=== PATIENT | female | born 1950 | race Caucasian/White ===

== ENCOUNTER → 2017-11-06 16:59 | Outpatient (CLI) | payer MEDICARE, BC, SELFPAY | PROVIDERS: Visit Provider Physician Assistant | DX: R30.0 Dysuria (principal) | CPT/HCPCS: 87086 ==

== ENCOUNTER → 2017-12-04 11:41 | Outpatient (CLI) | payer MEDICARE, BC, SELFPAY ==
[2017-12-04 12:17] LABS: Add Manual Diff / Slide Review NO; Basophils Percent Auto 1.7 % (0-2); Hematocrit 41.2 % (36-46); Hemoglobin 14.1 g/dL (12.0-16.0); Lymphocytes Percent Auto 22.4 % (25-40); Mean Corpuscular HGB Conc 34.3 % (30-36); Mean Corpuscular Hemoglobin 30.8 PG (26-34); Mean Corpuscular Volume 89.6 fL (80-100); Monocytes Percent Auto 10.9 % (3-14); Neutrophils Absolute Auto 3800 /uL (3000-5900); Platelet Count 483 X10^3/uL (150-400); Red Cell Distribution Width 15.1 % (11.6-14.8); White Blood Cell Count 5.9 X10^3/uL (4.5-11.0)
[2017-12-04 12:29] LABS: Erythrocyte Sedimentation Rate 16 MM/HR (0-20); INR 1.3 (0.9-1.3); Prothrombin Time 14.2 SECONDS (10.1-12.7)
[2017-12-04 12:34] LABS: Alanine Aminotransferase 121 IU/L (9-52); Albumin 4.4 g/dL (3.5-5.0); Albumin Globulin Ratio 1.4 (1.0-2.8); Alkaline Phosphatase 325 U/L (38-126); Aspartate Aminotransferase 97 IU/L (14-36); Bilirubin Direct 10.5 mg/dL (0.0-0.4); Bilirubin Total 12.3 mg/dL (0.2-1.3); Blood Urea Nitrogen 9 mg/dL (7-17); Calcium 9.6 mg/dL (8.4-10.2); Carbon Dioxide 28 mmol/L (22-32); Chloride 96 mmol/L (98-107); Estimated Glomerular Filt Rate > 60.0 mL/min (>60); Globulin 3.1 g/dL (1.7-4.1); Glucose 132 mg/dL (80-110); HEMOLYSIS < 15 (0-50); Potassium 3.2 mmol/L (3.4-5.1); Sodium 139 mmol/L (137-145); Total Protein 7.5 g/dL (6.3-8.2)
[2017-12-08 10:36] LABS: Hepatitis A Antibody IgM NONREACTIVE; Hepatitis Acute Panel Interp 0.01; Hepatitis B Core Antibody IgM NONREACTIVE; Hepatitis B Surface Antigen NONREACTIVE; Hepatitis C Antibody NONREACTIVE
== END ==
PROVIDERS: Visit Provider Internal Medicine
DX: R94.5 Abnormal results of liver function studies (principal); R17 Unspecified jaundice; R30.0 Dysuria; L50.9 Urticaria, unspecified
CPT/HCPCS: 36415; 80053; 80074; 82248; 85025; 85610; 85651

== ENCOUNTER → 2017-12-13 13:27 | Outpatient (CLI) | payer MEDICARE, BC, SELFPAY ==
[2017-12-13 13:50] LABS: INR 1.2 (0.9-1.3); Prothrombin Time 13.2 SECONDS (10.1-12.7)
[2017-12-13 13:55] LABS: Alanine Aminotransferase 80 IU/L (9-52); Albumin 4.3 g/dL (3.5-5.0); Albumin Globulin Ratio 1.4 (1.0-2.8); Alkaline Phosphatase 279 U/L (38-126); Aspartate Aminotransferase 68 IU/L (14-36); Bilirubin Conjugated 2.4 md/dL (0.0-0.3); Bilirubin Total 9.1 mg/dL (0.2-1.3); Bilirubin Unconjugated 1.9 mg/dL (0.0-1.1); Globulin 3.1 g/dL (1.7-4.1); HEMOLYSIS < 15 (0-50); Total Protein 7.4 g/dL (6.3-8.2)
== END ==
PROVIDERS: Visit Provider Internal Medicine
DX: Z85.038 Personal history of other malignant neoplasm of large intestine (principal); C22.1 Intrahepatic bile duct carcinoma
CPT/HCPCS: 36415; 80076; 85610

== ENCOUNTER 2017-12-13 16:49 | Inpatient (IN) | payer MEDICARE, BC, SELFPAY ==
[2017-12-13] VITALS (9 sets, daily range): BP systolic 128–167; BP diastolic 63–90; PULSE 65–87; RESP 13–18; TEMP 36.4–36.9; O2SAT 97–100; BMI 20.5
--- NOTE | 2017-12-13 16:56 | ED.ABDPAIN ---
HPI - Abdominal Pain <Brant Rocha DO - Last Filed: 12/30/17 07:59> General Chief Complaint: Abdominal Pain Stated Complaint: BACK PAIN, THINKS PANCREASE Time Seen by Provider: 12/13/17 16:56 Source: patient and family Mode of arrival: ambulatory Limitations: no limitations History of Present Illness HPI narrative: Patient presents to the emergency department with chief complaint of general feeling of malaise with decreased appetite and central back pain that radiates around both flanks. She has a complicated medical history and just a few days ago was at the [facility] and received stents in her biliary duct and pancreatic ducts for the early therapeutic treatment of gallbladder cancer. She does not have a working diagnosis and has received no oncologic treatment thus far. She was discharged from the [facility] and felt fine and then last evening developed symptoms soon after taking Levaquin. The GI fellow at the [facility] states she was put on antibiotics because some of her biliary tracts remained slightly ?clogged? and she needs antibiotic prophylaxis. Patient denies any fever or chills and has had no nausea or vomiting since the procedure. She is not dizzy nor weak or lightheaded. Patient presented to her primary care office and was sent here at his request. She is still jaundice but states that is definitely improved over prior MD complaint: flank pain Onset (ago): hour(s) Pain Consistency: constant Severity: moderate Quality: aching and fullness Radiation: back Migration to: no migration Relieving factors: nothing Exacerbating factors: nothing Related Data Home Medications Medication Instructions Recorded Confirmed lisinopril 10 1 tab PO DAILY 11/06/17 12/14/17 mg-hydrochlorothiazide 12.5 mg tablet simvastatin 40 mg tablet 40 mg PO QAM 11/06/17 12/14/17 Previous Rx's Medication Instructions Recorded oxycodone 10 mg PO Q3HR PRN #50 tab 12/15/17 ciprofloxacin HCl [Cipro] 500 mg PO BID #20 tab 12/23/17 metronidazole [Flagyl] 500 mg PO QID #40 tab 12/23/17 Allergies Allergy/AdvReac Type Severity Reaction Status Date / Time No Known Drug Allergies Allergy Verified 12/13/17 17:06 Review of Systems <DO Love Nascimento Last Filed: 12/30/17 07:59> Review of Systems All systems reviewed & are unremarkable except as noted in HPI and below Constitutional Denies chills, Denies fever(s), Denies lethargy and Denies weakness Eyes Denies change in vision, Denies eye discharge, Denies irritation and Denies loss of vision ENT Ears, Nose, Mouth, and Throat: Denies change in voice, Denies neck pain and Denies sore throat Cardiovascular Denies chest pain, Denies irregular heart rhythm, Denies lightheadedness, Denies palpitations, Denies dyspnea, Denies dyspnea on exertion and Denies orthopnea Respiratory Denies cough, Denies dyspnea, Denies dyspnea on exertion and Denies wheezing Gastrointestinal Gastrointestinal: Denies abdominal pain, Denies change in bowel habits, Denies diarrhea, Denies nausea and Denies vomiting Genitourinary Denies hematuria, Denies flank pain, Denies urinary incontinence and Denies urinary urgency Musculoskeletal Denies neck pain Integumentary/Breasts Denies pruritus, Denies erythema, Denies rash and Denies wounds Neurologic Denies confusion, Denies loss of vision and Denies weakness Psychiatric Denies anxiety, Denies confusion, Denies depression, Denies homicidal ideation and Denies suicidal ideation Endocrine Denies palpitations Hematologic/Lymphatic Denies easy bruising Allergic/Immunologic Denies wheezing Exam <Brant Rocha, DO - Last Filed: 12/30/17 07:59> Narrative Exam Narrative: 67-year-old chronically ill female appears generally unwell, jaundiced Initial Vital Signs Initial Vital Signs: Vital Signs Temperature 97.6 F 12/13/17 17:01 Pulse Rate 76 12/13/17 17:01 Respiratory Rate 14 12/13/17 17:01 Blood Pressure 157/90 H 12/13/17 17:01 Pulse Oximetry 100 12/13/17 17:01 Const General: cooperative, in distress and ill appearing Nutritional Appearance: well nourished Orientation: alert, awake, oriented x3 and not confused [facility] Head: normocephalic and atraumatic Ears: external ears normal and TM's normal bilaterally Nose: external nose normal and No nasal discharge Face and sinus: sinuses nontender, face symmetric, no sinus tenderness and No dry mucous membranes Mouth: oral mucosae normal and moist mucous membranes Teeth and gingiva: dentition normal Throat: tonsils normal and uvula midline Eyes General: appearance normal, both eyes and all related structures Eyelids: eyelids normal Conjunctivae: conjunctivae normal Sclera: sclerae normal Pupils: PERRL EOM: EOM intact bilaterally Resp Effort & Inspection: normal respiratory effort, able to speak in complete sentences, no respiratory distress and no use of accessory muscles Auscultation: clear to auscultation bilaterally, no rales, no rhonchi and no wheezes GI Inspection: non-distended Palpation: soft, no hepatosplenomegaly, No guarding, No pulsatile mass and No tender Auscultation: normal bowel sounds Back/Spine/Pelvis Back: No CVA tenderness Cervical Spine: cervical ROM normal and No pain with cervical ROM Thoracic/Lumbar Spine: thoracic and lumbar spine normal to inspection Skin General: jaundice Neuro General: alert, oriented x3, gait normal and no focal motor deficits Speech: speech normal Extrem General: full ROM, no clubbing, cyanosis or edema, no pedal edema and no calf tenderness <Lynn Flores DO - Last Filed: 12/14/17 01:37> Initial Vital Signs Initial Vital Signs: Vital Signs Temperature 97.6 F 12/13/17 17:01 Pulse Rate 76 12/13/17 17:01 Respiratory Rate 14 12/13/17 17:01 Blood Pressure 157/90 H 12/13/17 17:01 Pulse Oximetry 100 12/13/17 17:01 Course <Brant Rocha DO - Last Filed: 12/30/17 07:59> Orders Ordered: Discontinued Medications Hydromorphone HCl (Dilaudid) 0.5 mg IV NOW ONE Stop: 12/13/17 17:48 Last Admin: 12/13/17 18:11 Dose: 0.5 mg Hydromorphone HCl (Dilaudid) 0.5 mg IV NOW ONE Stop: 12/13/17 18:13 Last Admin: 12/13/17 18:12 Dose: 0.5 mg Hydromorphone HCl (Dilaudid) 0.5 mg IV NOW ONE Stop: 12/13/17 20:18 Last Admin: 12/13/17 20:21 Dose: 0.5 mg Hydromorphone HCl (Dilaudid) 0.5 mg IV NOW ONE Stop: 12/13/17 20:24 Last Admin: 12/13/17 20:30 Dose: Not Given Hydromorphone HCl (Dilaudid) 0.5 mg IV NOW ONE Stop: 12/13/17 21:39 Last Admin: 12/13/17 21:40 Dose: 0.5 mg Hydromorphone HCl (Dilaudid) 0.5 mg IV Q4HR PRN PRN Reason: Pain, Mild (1-3) Hydromorphone HCl (Dilaudid) 0.5 mg IV Q4HR PRN PRN Reason: Pain, Mild (1-3) Last Admin: 12/14/17 09:04 Dose: 0.5 mg Admin: 12/14/17 04:30 Dose: 0.5 mg Admin: 12/14/17 00:31 Dose: 0.5 mg Sodium Chloride (Normal Saline 0.9%) 1,000 mls @ 100 mls/hr IV CONT ALFREDO Last Admin: 12/14/17 07:05 Dose: 150 mls/hr Infusion: 12/13/17 20:26 Dose: 0 mls/hr Infusion: 12/13/17 19:21 Dose: 1,000 mls/hr Admin: 12/13/17 18:11 Dose: 150 mls/hr Ceftriaxone Sodium/Dextrose (Rocephin) 1 gm in 50 mls @ 100 mls/hr IV NOW ONE Stop: 12/13/17 18:16 Last Infusion: 12/13/17 19:04 Dose: 0 mls/hr Admin: 12/13/17 18:11 Dose: 100 mls/hr Sodium Chloride (Normal Saline 0.9%) 1,000 mls @ 1,000 mls/hr IV BOLUS ONE Stop: 12/13/17 20:00 Last Infusion: 12/13/17 22:01 Dose: 0 mls/hr Admin: 12/13/17 20:26 Dose: 1,000 mls/hr Sodium Chloride (Normal Saline 0.9%) 1,000 mls @ 250 mls/hr IV BOLUS ONE Stop: 12/14/17 01:46 Last Infusion: 12/13/17 23:33 Dose: 250 mls/hr Admin: 12/13/17 22:01 Dose: 250 mls/hr Sodium Chloride (Normal Saline 0.9%) 1,000 mls @ 1,000 mls/hr IV BOLUS ONE Stop: 12/13/17 22:46 Last Admin: 12/14/17 00:28 Dose: Not Given Potassium Chloride/Dextrose/Sod Cl (Dextrose 5%-0.45%Ns W/Kcl 20meq) 1,000 mls @ 100 mls/hr IV CONT ALFREDO Last Admin: 12/15/17 07:35 Dose: 100 mls/hr Infusion: 12/15/17 07:22 Dose: 0 mls/hr Admin: 12/14/17 11:30 Dose: 100 mls/hr Ondansetron HCl (Zofran) 4 mg IV Q4HR PRN PRN Reason: Nausea And Vomiting Oxycodone HCl (Percolone) 10 mg PO Q3HR PRN PRN Reason: Pain, Severe (7-10) Last Admin: 12/15/17 10:15 Dose: 10 mg Admin: 12/15/17 05:40 Dose: 10 mg Admin: 12/15/17 00:02 Dose: 10 mg Admin: 12/14/17 18:14 Dose: 10 mg Admin: 12/14/17 12:51 Dose: 10 mg Reevaluation(s) Reevaluation #1: patient in worsening pain, Dilaudid given, Rocephin given. Fluids ordered. Consultations Consultation #1: Upon receipt of labs I have called Dr. Simpson the GI fellow on-call, he recommends transfer to the [facility] given pancreatitis in the aftermath of her recent procedure and intolerance of orals. Call placed to the [facility] transfer center and transfer initiated. Time: 19:06 Vital Signs - 8 hr 12/13/17 17:35 12/13/17 18:07 12/13/17 18:50 Temperature Pulse Rate 71 66 65 Respiratory Rate 18 18 16 Blood Pressure Blood Pressure [Left Arm] 160/74 H 160/74 H 128/63 H Pulse Oximetry 100 100 97 12/13/17 19:30 12/13/17 20:30 12/13/17 21:30 Temperature Pulse Rate 78 76 87 Respiratory Rate 13 Blood Pressure Blood Pressure [Left Arm] 151/80 H 167/75 H 154/65 H Pulse Oximetry 100 100 99 12/13/17 22:32 12/13/17 23:57 Temperature 98.5 F Pulse Rate 72 79 Respiratory Rate 16 Blood Pressure 153/81 H Blood Pressure [Left Arm] 142/67 H Pulse Oximetry 100 97 <Lynn Flores DO - Last Filed: 12/14/17 01:37> Orders Ordered: Discontinued Medications Hydromorphone HCl (Dilaudid) 0.5 mg IV NOW ONE Stop: 12/13/17 17:48 Last Admin: 12/13/17 18:11 Dose: 0.5 mg Hydromorphone HCl (Dilaudid) 0.5 mg IV NOW ONE Stop: 12/13/17 18:13 Last Admin: 12/13/17 18:12 Dose: 0.5 mg Hydromorphone HCl (Dilaudid) 0.5 mg IV NOW ONE Stop: 12/13/17 20:18 Last Admin: 12/13/17 20:21 Dose: 0.5 mg Hydromorphone HCl (Dilaudid) 0.5 mg IV NOW ONE Stop: 12/13/17 20:24 Last Admin: 12/13/17 20:30 Dose: Not Given Hydromorphone HCl (Dilaudid) 0.5 mg IV NOW ONE Stop: 12/13/17 21:39 Last Admin: 12/13/17 21:40 Dose: 0.5 mg Hydromorphone HCl (Dilaudid) 0.5 mg IV Q4HR PRN PRN Reason: Pain, Mild (1-3) Hydromorphone HCl (Dilaudid) 0.5 mg IV Q4HR PRN PRN Reason: Pain, Mild (1-3) Last Admin: 12/14/17 09:04 Dose: 0.5 mg Admin: 12/14/17 04:30 Dose: 0.5 mg Admin: 12/14/17 00:31 Dose: 0.5 mg Sodium Chloride (Normal Saline 0.9%) 1,000 mls @ 100 mls/hr IV CONT ALFREDO Last Admin: 12/14/17 07:05 Dose: 150 mls/hr Infusion: 12/13/17 20:26 Dose: 0 mls/hr Infusion: 12/13/17 19:21 Dose: 1,000 mls/hr Admin: 12/13/17 18:11 Dose: 150 mls/hr Ceftriaxone Sodium/Dextrose (Rocephin) 1 gm in 50 mls @ 100 mls/hr IV NOW ONE Stop: 12/13/17 18:16 Last Infusion: 12/13/17 19:04 Dose: 0 mls/hr Admin: 12/13/17 18:11 Dose: 100 mls/hr Sodium Chloride (Normal Saline 0.9%) 1,000 mls @ 1,000 mls/hr IV BOLUS ONE Stop: 12/13/17 20:00 Last Infusion: 12/13/17 22:01 Dose: 0 mls/hr Admin: 12/13/17 20:26 Dose: 1,000 mls/hr Sodium Chloride (Normal Saline 0.9%) 1,000 mls @ 250 mls/hr IV BOLUS ONE Stop: 12/14/17 01:46 Last Infusion: 12/13/17 23:33 Dose: 250 mls/hr Admin: 12/13/17 22:01 Dose: 250 mls/hr Sodium Chloride (Normal Saline 0.9%) 1,000 mls @ 1,000 mls/hr IV BOLUS ONE Stop: 12/13/17 22:46 Last Admin: 12/14/17 00:28 Dose: Not Given Potassium Chloride/Dextrose/Sod Cl (Dextrose 5%-0.45%Ns W/Kcl 20meq) 1,000 mls @ 100 mls/hr IV CONT ALFREDO Last Admin: 12/15/17 07:35 Dose: 100 mls/hr Infusion: 12/15/17 07:22 Dose: 0 mls/hr Admin: 12/14/17 11:30 Dose: 100 mls/hr Ondansetron HCl (Zofran) 4 mg IV Q4HR PRN PRN Reason: Nausea And Vomiting Oxycodone HCl (Percolone) 10 mg PO Q3HR PRN PRN Reason: Pain, Severe (7-10) Last Admin: 12/15/17 10:15 Dose: 10 mg Admin: 12/15/17 05:40 Dose: 10 mg Admin: 12/15/17 00:02 Dose: 10 mg Admin: 12/14/17 18:14 Dose: 10 mg Admin: 12/14/17 12:51 Dose: 10 mg Consultations Consultation #1: Dr. Edward Chowdhury accepts patient at the [facility]. Unfortunately no bed will be available tonight. But she is on the list I will likely be transferred tomorrow. Recommends more IV fluids at this time and close monitoring. Time: 21:48 Vital Signs - 8 hr 12/13/17 17:35 12/13/17 18:07 12/13/17 18:50 Temperature Pulse Rate 71 66 65 Respiratory Rate 18 18 16 Blood Pressure Blood Pressure [Left Arm] 160/74 H 160/74 H 128/63 H Pulse Oximetry 100 100 97 12/13/17 19:30 12/13/17 20:30 12/13/17 21:30 Temperature Pulse Rate 78 76 87 Respiratory Rate 13 Blood Pressure Blood Pressure [Left Arm] 151/80 H 167/75 H 154/65 H Pulse Oximetry 100 100 99 12/13/17 22:32 12/13/17 23:57 Temperature 98.5 F Pulse Rate 72 79 Respiratory Rate 16 Blood Pressure 153/81 H Blood Pressure [Left Arm] 142/67 H Pulse Oximetry 100 97 MDM - Abdominal Pain <Brant Rocha DO - Last Filed: 12/30/17 07:59> Lab Data Result diagrams: 12/13/17 17:10 12/14/17 06:07 Lab Results 12/13/17 12/13/17 12/13/17 Range/Units 17:10 17:10 17:10 WBC 11.1 H (4.5-11.0) X10^3/uL RBC 4.37 (4.0-5.2) X10^6/uL Hgb 13.4 (12.0-16.0) g/dL Hct 38.8 (36-46) % MCV 88.9 (80-100) fL MCH 30.6 (26-34) PG MCHC 34.4 (30-36) % RDW 15.8 H (11.6-14.8) % Plt Count 473 H (150-400) X10^3/uL Neut % (Auto) 73.6 (50-75) % Lymph % (Auto) 16.4 L (25-40) % [place] % (Auto) 7.9 (3-14) % Eos % (Auto) 0.7 L (2-4) % Baso % (Auto) 1.4 (0-2) % Neut # (Auto) 8200 H (9216-1732) /uL Sodium 137 (137-145) mmol/L Potassium 3.5 (3.4-5.1) mmol/L Chloride 99 (98-107) mmol/L Carbon Dioxide 25 (22-32) mmol/L BUN 13 (7-17) mg/dL Creatinine 0.50 L (0.52-1.04) mg/dL Estimated GFR > 60.0 (>60) mL/min BUN/Creatinine Ratio 26.0 H (6-22) Glucose 117 H (80-110) mg/dL Lactate 1.2 (0.7-2.1) mmol/L Calcium 9.3 (8.4-10.2) mg/dL Total Bilirubin 8.5 H (0.2-1.3) mg/dL AST 75 H (14-36) IU/L ALT 74 H (9-52) IU/L Alkaline Phosphatase 262 H (38-126) U/L Lactate Dehydrogenase (313-618) U/L Total Protein 7.2 (6.3-8.2) g/dL Albumin 4.0 (3.5-5.0) g/dL Globulin 3.2 (1.7-4.1) g/dL Albumin/Globulin Ratio 1.3 (1.0-2.8) Lipase 78104 H (23-300) U/L 12/13/17/ Range/Units 17:10 06:07 WBC (4.5-11.0) X10^3/uL RBC (4.0-5.2) X10^6/uL Hgb (12.0-16.0) g/dL Hct (36-46) % MCV (80-100) fL MCH (26-34) PG MCHC (30-36) % RDW (11.6-14.8) % Plt Count (150-400) X10^3/uL Neut % (Auto) (50-75) % Lymph % (Auto) (25-40) % [place] % (Auto) (3-14) % Eos % (Auto) (2-4) % Baso % (Auto) (0-2) % Neut # (Auto) (8778-3596) /uL Sodium 138 (137-145) mmol/L Potassium 3.2 L (3.4-5.1) mmol/L Chloride 106 (98-107) mmol/L Carbon Dioxide 23 (22-32) mmol/L BUN 7 (7-17) mg/dL Creatinine 0.40 L (0.52-1.04) mg/dL Estimated GFR > 60.0 (>60) mL/min BUN/Creatinine Ratio 17.5 (6-22) Glucose 93 (80-110) mg/dL Lactate (0.7-2.1) mmol/L Calcium 7.9 L (8.4-10.2) mg/dL Total Bilirubin 6.5 H (0.2-1.3) mg/dL AST 62 H (14-36) IU/L ALT 60 H (9-52) IU/L Alkaline Phosphatase 195 H (38-126) U/L Lactate Dehydrogenase 471 (313-618) U/L Total Protein 5.8 L (6.3-8.2) g/dL Albumin 3.1 L (3.5-5.0) g/dL Globulin 2.7 (1.7-4.1) g/dL Albumin/Globulin Ratio 1.1 (1.0-2.8) Lipase 77873 H D (23-300) U/L Point of care testing: Urine Dip Bedside Urine Glucose Negative Bedside Urine Bilirubin - Negative Bedside Urine Ketone +/- 5 Urine Specific [place] 1.010 Bedside Urine Occult Blood - Negative Bedside Urine pH 8.0 Bedside Urine Protein - Negative Bedside Urine Urobilinogen - Negative Bedside Urine Nitrite - Negative Bedside Urine Leukocytes - Negative Esterase <Lynn Flores, DO - Last Filed: 12/14/17 01:37> Medical Records Attestation: I reviewed the patient's medical records. Lab Data Attestation: I reviewed the patient's lab results. Lab Results 12/13/17 12/13/17 12/13/17 Range/Units 17:10 17:10 17:10 WBC 11.1 H (4.5-11.0) X10^3/uL RBC 4.37 (4.0-5.2) X10^6/uL Hgb 13.4 (12.0-16.0) g/dL Hct 38.8 (36-46) % MCV 88.9 (80-100) fL MCH 30.6 (26-34) PG MCHC 34.4 (30-36) % RDW 15.8 H (11.6-14.8) % Plt Count 473 H (150-400) X10^3/uL Neut % (Auto) 73.6 (50-75) % Lymph % (Auto) 16.4 L (25-40) % [place] % (Auto) 7.9 (3-14) % Eos % (Auto) 0.7 L (2-4) % Baso % (Auto) 1.4 (0-2) % Neut # (Auto) 8200 H (3742-8300) /uL Sodium 137 (137-145) mmol/L Potassium 3.5 (3.4-5.1) mmol/L Chloride 99 (98-107) mmol/L Carbon Dioxide 25 (22-32) mmol/L BUN 13 (7-17) mg/dL Creatinine 0.50 L (0.52-1.04) mg/dL Estimated GFR > 60.0 (>60) mL/min BUN/Creatinine Ratio 26.0 H (6-22) Glucose 117 H (80-110) mg/dL Lactate 1.2 (0.7-2.1) mmol/L Calcium 9.3 (8.4-10.2) mg/dL Total Bilirubin 8.5 H (0.2-1.3) mg/dL AST 75 H (14-36) IU/L ALT 74 H (9-52) IU/L Alkaline Phosphatase 262 H (38-126) U/L Lactate Dehydrogenase (313-618) U/L Total Protein 7.2 (6.3-8.2) g/dL Albumin 4.0 (3.5-5.0) g/dL Globulin 3.2 (1.7-4.1) g/dL Albumin/Globulin Ratio 1.3 (1.0-2.8) Lipase 12845 H (23-300) U/L 12/13/17 12/14/17 Range/Units 17:10 06:07 WBC (4.5-11.0) X10^3/uL RBC (4.0-5.2) X10^6/uL Hgb (12.0-16.0) g/dL Hct (36-46) % MCV (80-100) fL MCH (26-34) PG MCHC (30-36) % RDW (11.6-14.8) % Plt Count (150-400) X10^3/uL Neut % (Auto) (50-75) % Lymph % (Auto) (25-40) % [place] % (Auto) (3-14) % Eos % (Auto) (2-4) % Baso % (Auto) (0-2) % Neut # (Auto) (5977-4170) /uL Sodium 138 (137-145) mmol/L Potassium 3.2 L (3.4-5.1) mmol/L Chloride 106 (98-107) mmol/L Carbon Dioxide 23 (22-32) mmol/L BUN 7 (7-17) mg/dL Creatinine 0.40 L (0.52-1.04) mg/dL Estimated GFR > 60.0 (>60) mL/min BUN/Creatinine Ratio 17.5 (6-22) Glucose 93 (80-110) mg/dL Lactate (0.7-2.1) mmol/L Calcium 7.9 L (8.4-10.2) mg/dL Total Bilirubin 6.5 H (0.2-1.3) mg/dL AST 62 H (14-36) IU/L ALT 60 H (9-52) IU/L Alkaline Phosphatase 195 H (38-126) U/L Lactate Dehydrogenase 471 (313-618) U/L Total Protein 5.8 L (6.3-8.2) g/dL Albumin 3.1 L (3.5-5.0) g/dL Globulin 2.7 (1.7-4.1) g/dL Albumin/Globulin Ratio 1.1 (1.0-2.8) Lipase 73009 H D (23-300) U/L Point of care testing: Urine Dip Bedside Urine Glucose Negative Bedside Urine Bilirubin - Negative Bedside Urine Ketone +/- 5 Urine Specific [place] 1.010 Bedside Urine Occult Blood - Negative Bedside Urine pH 8.0 Bedside Urine Protein - Negative Bedside Urine Urobilinogen - Negative Bedside Urine Nitrite - Negative Bedside Urine Leukocytes - Negative Esterase Imaging Data US - abdomen: Radiologist's impression: PROCEDURE: US ABDOMEN COMPLETE INDICATIONS: PANCREATITIS TECHNIQUE: Real-time scanning was performed of the abdominal and retroperitoneal organs, with image documentation. COMPARISON: None. FINDINGS: Liver: Known hepatic mass seen on an outside MRI by report is not identified. Gallbladder: Gallbladder is enlarged measuring 6.4 CM with normal wall thickness and no pericholecystic fluid. There is a negative sonographic Robles's signs. There is cholelithiasis. Biliary ducts: There is intrahepatic ductal dilatation and extrahepatic ductal dilatation which measures up to 10 mm. There is a biliary duct stent with a possible 7 mm calculus adjacent to the stent. Pancreas: Visualized portions of the pancreas are sonographically normal. The pancreatic duct measures 3 mm in diameter. Spleen: Spleen is normal in size and homogeneous in echotexture. Kidneys: Kidneys are normal in size and echotexture. Right kidney measures 11.4 cm long; left kidney measures 11.5 cm long. No hydronephrosis or nephrolithiasis. No solid masses. Aorta: Visualized aorta is normal in caliber at less than 3 cm. Iliacs: Proximal common iliac arteries are normal in caliber at less than 2.5 cm. IVC: Intrahepatic inferior vena cava is patent. Miscellaneous: No free abdominal fluid. IMPRESSION: 1. Reported hepatic mass is not identified. 2. Intra-and extrahepatic biliary ductal dilatation with a stent in the common bile duct. There is a possible 7 mm calculus adjacent to stent. 3. Enlarged gallbladder with cholelithiasis. Findings do not support acute cholecystitis. Dictated by: Toni Rea M.D. on 12/13/2017 at 20:11 CT scan - abdomen: Radiologist's impression: PROCEDURE: CT ABDOMEN PELVIS W CON INDICATIONS: Pancreatitis ERCP 12/11 stent in CBD, ventral pancreatic duct TECHNIQUE: After the administration of intravenous contrast, 5 mm thick sections acquired from the diaphragm to the symphysis. 5 mm coronal and sagittal reformats were acquired. For radiation dose reduction, the following was used: automated exposure control, adjustment of mA and/or kV according to patient size. COMPARISON: None. FINDINGS: Image quality: Excellent. ABDOMEN: Lung bases: Lung bases are clear. Heart size is normal. Solid organs: There is a 1.6 cm low-density mass in the left lobe of the liver. Marked intrahepatic biliary ductal dilatation with biliary gas. The gallbladder is markedly enlarged with normal wall thickness. There is cholelithiasis. Biliary stent is in place. There is ill-defined soft tissue density in the jeff hepatus about the stent. The pancreatic head demonstrates heterogeneous enhancement with surrounding inflammatory change. There is a 15 mm low-density mass adjacent to the third segment of the duodenum which may represent a duodenal diverticulum. A cystic mass arising from the uncinate process is also possible (se 2 im 41). Peritoneum and bowel: Bowel loops demonstrate normal wall thickness and caliber. No free fluid or air. Partial colectomy. Nodes and vessels: No retroperitoneal or mesenteric adenopathy by size criteria. Aorta and inferior vena cava are normal in size. Miscellaneous: No ventral hernias. Partially visualized breast implants. PELVIS: Genitourinary: Bladder wall thickness is normal. Miscellaneous: No inguinal hernias or adenopathy. Bones: No suspicious bony lesions. No vertebral body compression fractures. IMPRESSION: 1. Biliary duct stent in the setting of marked intrahepatic biliary ductal dilatation and an enlarged gallbladder. Patency of the stent cannot be determined on this study. Gas within the biliary system may be due to stent placement. Infection cannot be excluded. 2. There is ill-defined soft tissue in the jeff hepatis about the stent which may represent edema and inflammation although a mass cannot be excluded. 3. There is heterogeneous enhancement and enlargement of the pancreatic head which may represent pancreatitis with edema. Given areas of poor enhancement early necrosis is also possible. There is no pancreatic ductal dilatation. 4. Low-density left lobe of the liver mass is indeterminate. By report the patient underwent MRCP approximately one week prior to this study. If this study were obtained, comparison could be made for further evaluation of this mass. 5. Enlarged gallbladder with cholelithiasis. Findings are more likely due to chronic obstruction than due to acute cholecystitis. 6. Findings discussed via telephone ([id number]) with Dr. Flores of the emergency department at 21:15 on 12/13/22. Dictated by: Toni Rea M.D. on 12/13/2017 at 21:07 Approved by: Toni Rea M.D. on 12/13/2017 at 21:24 MDM Narrative Medical decision making narrative: Patient has urinated multiple times in the ED without IV fluid. Patient and her do request that she go to [facility]. Unfortunately [place] no longer has beds. In her procedure was done at the [facility]. She remains alert and oriented. Stressed about the current situation and not knowing what the plan is. She continues to have intermittent abdominal pain which is controlled with Dilaudid. She does not appear toxic or septic. Dr. Reyes has been updated on patient's test results symptoms and plan to transfer to [facility] as soon as a bed is available. [facility] [place]=[phone] Dr. Simpson. Discharge Plan Departure Patient Disposition: Admitted As Inpatient Clinical Impression: Acute pancreatitis Discharge Date/Time: 12/13/17 23:36 Interventions: ED Discharge Assessment Last Done: 12/13/17 23:35 Admit Date/Time: 12/13/17 23:12 Admit Provider: Yaquelin Reyes <Lynn Flores DO - Last Filed: 12/14/17 01:37> Sign Out Provider Sign Out Attestation: Signed out from Dr. Rocha at 7:30 p.m. currently getting ultrasound. Awaiting [facility] transfer. Pancreatitis. At this time no imaging indicated. And seen and evaluated patient.
[2017-12-13 17:26] LABS: Add Manual Diff / Slide Review NO; Basophils Percent Auto 1.4 % (0-2); Eosinophils Percent Auto 0.7 % (2-4); Hematocrit 38.8 % (36-46); Hemoglobin 13.4 g/dL (12.0-16.0); Lymphocytes Percent Auto 16.4 % (25-40); Mean Corpuscular HGB Conc 34.4 % (30-36); Mean Corpuscular Hemoglobin 30.6 PG (26-34); Mean Corpuscular Volume 88.9 fL (80-100); Monocytes Percent Auto 7.9 % (3-14); Neutrophils Absolute Auto 8200 /uL (3000-5900); Neutrophils Percent Auto 73.6 % (50-75); Platelet Count 473 X10^3/uL (150-400); Red Blood Cell Count 4.37 X10^6/uL (4.0-5.2); Red Cell Distribution Width 15.8 % (11.6-14.8); White Blood Cell Count 11.1 X10^3/uL (4.5-11.0)
[2017-12-13 17:37] LABS: Alanine Aminotransferase 74 IU/L (9-52); Albumin Globulin Ratio 1.3 (1.0-2.8); Alkaline Phosphatase 262 U/L (38-126); Aspartate Aminotransferase 75 IU/L (14-36); Bilirubin Total 8.5 mg/dL (0.2-1.3); Blood Urea Nitrogen 13 mg/dL (7-17); Calcium 9.3 mg/dL (8.4-10.2); Carbon Dioxide 25 mmol/L (22-32); Chloride 99 mmol/L (98-107); Estimated Glomerular Filt Rate > 60.0 mL/min (>60); Globulin 3.2 g/dL (1.7-4.1); Glucose 117 mg/dL (80-110); Lactate (Lactic Acid) 1.2 mmol/L (0.7-2.1); Lactate Dehydrogenase 471 U/L (313-618); Potassium 3.5 mmol/L (3.4-5.1); Sodium 137 mmol/L (137-145); Total Protein 7.2 g/dL (6.3-8.2)
[2017-12-13] MEDS: CEFTRIAXONE 1 GM/50 ML FROZ.PIGGY IV (18:11)
[2017-12-13] MEDS: SODIUM CHLORIDE 0.9% 1,000 ML 150 ML IV (18:11)
[2017-12-13] MEDS: HYDROMORPHONE 1 MG INJ 0.5 MG IV ×3 (18:11→21:40)
[2017-12-13] MEDS: HYDROMORPHONE 0.5 MG INJ IV (18:12)
[2017-12-13 18:38] LABS: HEMOLYSIS 40 (0-50)
[2017-12-13 18:39] LABS: Lipase 47886 U/L (23-300)
--- NOTE | 2017-12-13 18:45 | DI.US.S_ITS ---
PROCEDURE: US ABDOMEN COMPLETE INDICATIONS: PANCREATITIS TECHNIQUE: Real-time scanning was performed of the abdominal and retroperitoneal organs, with image documentation. COMPARISON: None. FINDINGS: Liver: Known hepatic mass seen on an outside MRI by report is not identified. Gallbladder: Gallbladder is enlarged measuring 6.4 CM with normal wall thickness and no pericholecystic fluid. There is a negative sonographic Robles's signs. There is cholelithiasis. Biliary ducts: There is intrahepatic ductal dilatation and extrahepatic ductal dilatation which measures up to 10 mm. There is a biliary duct stent with a possible 7 mm calculus adjacent to the stent. Pancreas: Visualized portions of the pancreas are sonographically normal. The pancreatic duct measures 3 mm in diameter. Spleen: Spleen is normal in size and homogeneous in echotexture. Kidneys: Kidneys are normal in size and echotexture. Right kidney measures 11.4 cm long; left kidney measures 11.5 cm long. No hydronephrosis or nephrolithiasis. No solid masses. Aorta: Visualized aorta is normal in caliber at less than 3 cm. Iliacs: Proximal common iliac arteries are normal in caliber at less than 2.5 cm. IVC: Intrahepatic inferior vena cava is patent. Miscellaneous: No free abdominal fluid. IMPRESSION: 1. Reported hepatic mass is not identified. 2. Intra-and extrahepatic biliary ductal dilatation with a stent in the common bile duct. There is a possible 7 mm calculus adjacent to stent. 3. Enlarged gallbladder with cholelithiasis. Findings do not support acute cholecystitis. Dictated by: Toni Rea M.D. on 12/13/2017 at 20:11 Approved by: Toni Rea M.D. on 12/13/2017 at 20:14
--- NOTE | 2017-12-13 20:22 | DI.CT.S_ITS ---
PROCEDURE: CT ABDOMEN PELVIS W CON INDICATIONS: Pancreatitis ERCP 12/11 stent in CBD, ventral pancreatic duct TECHNIQUE: After the administration of intravenous contrast, 5 mm thick sections acquired from the diaphragm to the symphysis. 5 mm coronal and sagittal reformats were acquired. For radiation dose reduction, the following was used: automated exposure control, adjustment of mA and/or kV according to patient size. COMPARISON: None. FINDINGS: Image quality: Excellent. ABDOMEN: Lung bases: Lung bases are clear. Heart size is normal. Solid organs: There is a 1.6 cm low-density mass in the left lobe of the liver. Marked intrahepatic biliary ductal dilatation with biliary gas. The gallbladder is markedly enlarged with normal wall thickness. There is cholelithiasis. Biliary stent is in place. There is ill-defined soft tissue density in the jeff hepatus about the stent. The pancreatic head demonstrates heterogeneous enhancement with surrounding inflammatory change. There is a 15 mm low-density mass adjacent to the third segment of the duodenum which may represent a duodenal diverticulum. A cystic mass arising from the uncinate process is also possible (se 2 im 41). Peritoneum and bowel: Bowel loops demonstrate normal wall thickness and caliber. No free fluid or air. Partial colectomy. Nodes and vessels: No retroperitoneal or mesenteric adenopathy by size criteria. Aorta and inferior vena cava are normal in size. Miscellaneous: No ventral hernias. Partially visualized breast implants. PELVIS: Genitourinary: Bladder wall thickness is normal. Miscellaneous: No inguinal hernias or adenopathy. Bones: No suspicious bony lesions. No vertebral body compression fractures. IMPRESSION: 1. Biliary duct stent in the setting of marked intrahepatic biliary ductal dilatation and an enlarged gallbladder. Patency of the stent cannot be determined on this study. Gas within the biliary system may be due to stent placement. Infection cannot be excluded. 2. There is ill-defined soft tissue in the jeff hepatis about the stent which may represent edema and inflammation although a mass cannot be excluded. 3. There is heterogeneous enhancement and enlargement of the pancreatic head which may represent pancreatitis with edema. Given areas of poor enhancement early necrosis is also possible. There is no pancreatic ductal dilatation. 4. Low-density left lobe of the liver mass is indeterminate. By report the patient underwent MRCP approximately one week prior to this study. If this study were obtained, comparison could be made for further evaluation of this mass. 5. Enlarged gallbladder with cholelithiasis. Findings are more likely due to chronic obstruction than due to acute cholecystitis. 6. Findings discussed via telephone ([id number]) with Dr. Flores of the emergency department at 21:15 on 12/13/22. Dictated by: Toni Rea M.D. on 12/13/2017 at 21:07 Approved by: Toni Rea M.D. on 12/13/2017 at 21:24
[2017-12-13] MEDS: SODIUM CHLORIDE 0.9% 1,000 ML 1000 ML IV (20:26)
[2017-12-13] MEDS: SODIUM CHLORIDE 0.9% 1,000 ML 250 ML IV (22:01)
--- NOTE | 2017-12-13 23:17 | PC.NURSE ---
Called Tracey to give report. She is unable to take report at this time. Will call back.
[2017-12-14] MEDS: HYDROMORPHONE 0.5 MG INJ IV ×3 (00:31→09:04)
[2017-12-14 04:40] VITALS: BP 139/77; PULSE 80; RESP 16; TEMP 36.9; O2SAT 96
[2017-12-14 06:33] LABS: Alanine Aminotransferase 60 IU/L (9-52); Albumin 3.1 g/dL (3.5-5.0); Albumin Globulin Ratio 1.1 (1.0-2.8); Alkaline Phosphatase 195 U/L (38-126); Aspartate Aminotransferase 62 IU/L (14-36); BUN Creatinine Ratio 17.5 (6-22); Bilirubin Total 6.5 mg/dL (0.2-1.3); Blood Urea Nitrogen 7 mg/dL (7-17); Calcium 7.9 mg/dL (8.4-10.2); Carbon Dioxide 23 mmol/L (22-32); Chloride 106 mmol/L (98-107); Estimated Glomerular Filt Rate > 60.0 mL/min (>60); Globulin 2.7 g/dL (1.7-4.1); Glucose 93 mg/dL (80-110); HEMOLYSIS < 15 (0-50); Potassium 3.2 mmol/L (3.4-5.1); Sodium 138 mmol/L (137-145); Total Protein 5.8 g/dL (6.3-8.2)
[2017-12-14 06:52] LABS: Lipase 11589 U/L (23-300)
[2017-12-14] MEDS: SODIUM CHLORIDE 0.9% 1,000 ML 150 ML IV (07:05)
[2017-12-14 08:00] VITALS: BP 133/77; PULSE 73; RESP 16; TEMP 36.8; O2SAT 97
--- NOTE | 2017-12-14 10:10 | PM.HP.1 ---
History of Present Illness Date Patient Seen: 12/14/17 Time Patient Seen: 10:15 Chief complaint: BACK PAIN, THINKS PANCREASE Narrative: 67-year-old female recently diagnosed with biliary cancer and was at the [facility] recently for a biliary stent procedure. She was placed on Levaquin at that time and was only home for a day or 2 and developed severe pain that started in the back radiating down into the abdomen just above the umbilicus area. This symptoms seemed to start after taking the Levaquin. She has had decreased appetite and just not feeling well also. She came to the emergency room for evaluation and emergency room physician has contacted the [facility] GI specialist who did the procedure and they feels that she needs to come back down to the [facility] but there are no beds available. Her lipase in the emergency room was 43,000. CT scan showed possible pancreatitis Patient History Medical History Colon cancer (Acute) Biliary tract cancer (Chronic) Hypertension (Chronic) Surgical History History of colon resection (Acute) Family & Social History Social History: household members spouse Prior Living Arrangements RV Safety & Behavioral: Feels Safe in Current Yes Environment Been Physically Hurt or No Threatened By a Person Suicidal Ideation Description None Tobacco & Substance use: Smoking Status Never smoker alcohol intake frequency 0-2 drinks per day Substance Use Type does not use Meds Home Medications Medication Instructions Recorded Confirmed Type lisinopril 10 1 tab PO DAILY 11/06/17 12/14/17 History mg-hydrochlorothiazide 12.5 mg tablet simvastatin 40 mg tablet 40 mg PO QAM 11/06/17 12/14/17 History Allergies Allergy/AdvReac Type Severity Reaction Status Date / Time No Known Drug Allergies Allergy Verified 12/13/17 17:06 Review of Systems Review of Systems All systems reviewed & are unremarkable except as noted in HPI and below Exam Vital Signs (past 8 hours): - 12/14/17 04:40 Temperature 98.4 F Pulse Rate 80 Respiratory Rate 16 Blood Pressure 139/77 H Pulse Oximetry 96 Oxygen Delivery Method Room Air Narrative Exam Narrative: Patient is visibly jaundiced she appears in no acute distress she is resting comfortably HEENT exam unremarkable Lungs clear Heart regular rhythm Abdomen tenderness in the epigastric area to palpation bowel sounds decreased Lower extremities no edema Neuro exam unremarkable Skin warm and dry Objective Labs Result Diagrams: 12/13/17 17:10 12/14/17 06:07 Labs: Laboratory Results - last 24 hr 07/25/18 07/25/18 07/25/18 17:10 17:10 17:10 WBC 11.1 H RBC 4.37 Hgb 13.4 Hct 38.8 MCV 88.9 MCH 30.6 MCHC 34.4 RDW 15.8 H Plt Count 473 H Neut % (Auto) 73.6 Lymph % (Auto) 16.4 L Tyrrell % (Auto) 7.9 Eos % (Auto) 0.7 L Baso % (Auto) 1.4 Neut # (Auto) 8200 H Sodium 137 Potassium 3.5 Chloride 99 Carbon Dioxide 25 BUN 13 Creatinine 0.50 L Estimated GFR > 60.0 BUN/Creatinine Ratio 26.0 H Glucose 117 H Lactate 1.2 Calcium 9.3 Total Bilirubin 8.5 H AST 75 H ALT 74 H Alkaline Phosphatase 262 H Lactate Dehydrogenase Total Protein 7.2 Albumin 4.0 Globulin 3.2 Albumin/Globulin Ratio 1.3 Lipase 39238 H 12/13/17 12/14/17 17:10 06:07 WBC RBC Hgb Hct MCV MCH MCHC RDW Plt Count Neut % (Auto) Lymph % (Auto) Tyrrell % (Auto) Eos % (Auto) Baso % (Auto) Neut # (Auto) Sodium 138 Potassium 3.2 L Chloride 106 Carbon Dioxide 23 BUN 7 Creatinine 0.40 L Estimated GFR > 60.0 BUN/Creatinine Ratio 17.5 Glucose 93 Lactate Calcium 7.9 L Total Bilirubin 6.5 H AST 62 H ALT 60 H Alkaline Phosphatase 195 H Lactate Dehydrogenase 471 Total Protein 5.8 L Albumin 3.1 L Globulin 2.7 Albumin/Globulin Ratio 1.1 Lipase 39065 H D Assessment & Plan Plan: Assessment/Plan Narrative: One. Recently diagnosed biliary/gallbladder cancer with stenting of the biliary ducts done recently at the [facility]. She now has elevated pancreas enzyme lipase up to 43,[address] consistent with pancreatitis. We have contacted her GI specialist at the [facility] in and they are requesting the patient be transfer but there are no beds available. At this point patient will be admitted to the hospital in anticipation of transfer soon. Plan for IV fluids IV Dilaudid pain medication NPO status initially and if she starts to do better maybe some clear liquids. Potassium slightly low so at some potassium to her IV fluids Dilaudid for the pain.
--- NOTE | 2017-12-14 10:17 | P.HP_ITS ---
History of Present Illness Date Patient Seen: 12/14/17 Time Patient Seen: 10:15 Chief complaint: BACK PAIN, THINKS PANCREASE Narrative: 67-year-old female recently diagnosed with biliary cancer and was at the [facility] recently for a biliary stent procedure. She was placed on Levaquin at that time and was only home for a day or 2 and developed severe pain that started in the back radiating down into the abdomen just above the umbilicus area. This symptoms seemed to start after taking the Levaquin. She has had decreased appetite and just not feeling well also. She came to the emergency room for evaluation and emergency room physician has contacted the [facility] GI specialist who did the procedure and they feels that she needs to come back down to the [facility] but there are no beds available. Her lipase in the emergency room was 43,000. CT scan showed possible pancreatitis Patient History Medical History Colon cancer (Acute) Biliary tract cancer (Chronic) Hypertension (Chronic) Surgical History History of colon resection (Acute) Family & Social History Social History: household members spouse Prior Living Arrangements RV Safety & Behavioral: Feels Safe in Current Yes Environment Been Physically Hurt or No Threatened By a Person Suicidal Ideation Description None Tobacco & Substance use: Smoking Status Never smoker alcohol intake frequency 0-2 drinks per day Substance Use Type does not use Meds Home Medications Medication Instructions Recorded Confirmed Type lisinopril 10 1 tab PO DAILY 11/06/17 12/14/17 History mg-hydrochlorothiazide 12.5 mg tablet simvastatin 40 mg tablet 40 mg PO QAM 11/06/17 12/14/17 History Allergies Allergy/AdvReac Type Severity Reaction Status Date / Time No Known Drug Allergies Allergy Verified 12/13/17 17:06 Review of Systems Review of Systems All systems reviewed & are unremarkable except as noted in HPI and below Exam Vital Signs (past 8 hours): - 12/14/17 04:40 Temperature 98.4 F Pulse Rate 80 Respiratory Rate 16 Blood Pressure 139/77 H Pulse Oximetry 96 Oxygen Delivery Method Room Air Narrative Exam Narrative: Patient is visibly jaundiced she appears in no acute distress she is resting comfortably HEENT exam unremarkable Lungs clear Heart regular rhythm Abdomen tenderness in the epigastric area to palpation bowel sounds decreased Lower extremities no edema Neuro exam unremarkable Skin warm and dry Objective Labs Result Diagrams: 12/13/17 17:10 12/14/17 06:07 Labs: Laboratory Results - last 24 hr 07/25/18 07/25/18 07/25/18 17:10 17:10 17:10 WBC 11.1 H RBC 4.37 Hgb 13.4 Hct 38.8 MCV 88.9 MCH 30.6 MCHC 34.4 RDW 15.8 H Plt Count 473 H Neut % (Auto) 73.6 Lymph % (Auto) 16.4 L Shackelford % (Auto) 7.9 Eos % (Auto) 0.7 L Baso % (Auto) 1.4 Neut # (Auto) 8200 H Sodium 137 Potassium 3.5 Chloride 99 Carbon Dioxide 25 BUN 13 Creatinine 0.50 L Estimated GFR > 60.0 BUN/Creatinine Ratio 26.0 H Glucose 117 H Lactate 1.2 Calcium 9.3 Total Bilirubin 8.5 H AST 75 H ALT 74 H Alkaline Phosphatase 262 H Lactate Dehydrogenase Total Protein 7.2 Albumin 4.0 Globulin 3.2 Albumin/Globulin Ratio 1.3 Lipase 87139 H 12/13/17 12/14/17 17:10 06:07 WBC RBC Hgb Hct MCV MCH MCHC RDW Plt Count Neut % (Auto) Lymph % (Auto) Shackelford % (Auto) Eos % (Auto) Baso % (Auto) Neut # (Auto) Sodium 138 Potassium 3.2 L Chloride 106 Carbon Dioxide 23 BUN 7 Creatinine 0.40 L Estimated GFR > 60.0 BUN/Creatinine Ratio 17.5 Glucose 93 Lactate Calcium 7.9 L Total Bilirubin 6.5 H AST 62 H ALT 60 H Alkaline Phosphatase 195 H Lactate Dehydrogenase 471 Total Protein 5.8 L Albumin 3.1 L Globulin 2.7 Albumin/Globulin Ratio 1.1 Lipase 65392 H D Assessment & Plan Plan: Assessment/Plan Narrative: One. Recently diagnosed biliary/gallbladder cancer with stenting of the biliary ducts done recently at the [facility]. She now has elevated pancreas enzyme lipase up to 43,[address] consistent with pancreatitis. We have contacted her GI specialist at the [facility] in and they are requesting the patient be transfer but there are no beds available. At this point patient will be admitted to the hospital in anticipation of transfer soon. Plan for IV fluids IV Dilaudid pain medication NPO status initially and if she starts to do better maybe some clear liquids. Potassium slightly low so at some potassium to her IV fluids Dilaudid for the pain.
[2017-12-14] MEDS: DEXTROSE 5%-0.45NS W/KCL 20MEQ 1,000 ML 100 MEQ IV (11:30)
[2017-12-14] MEDS: OXYCODONE IR 5 MG TABLET 10 MG PO ×2 (12:51→18:14)
--- NOTE | 2017-12-14 15:14 | PC.NURSE ---
GI: SI'm doing better. Pt reports less abd pain today, no nausea. Did get a dose of dilaudid this am which was effective. Seen by MD and diet was advanced to clear liq. Tolerated clears w/out problems. Up amb in room, no dizziness. Pain meds changed to orals - oxycodone and pt reported med was effective as well. No further dilaudid needed. Spouse in room most of day and supportive. Pt is the most concerned about getting her pathology back so she knows what the next step will be. Cont to support coping [facility].
[2017-12-14 15:50] VITALS: BP 144/80; PULSE 69; RESP 18; TEMP 36.7; O2SAT 97
[2017-12-14 20:30] VITALS: BP 147/86; PULSE 78; RESP 18; TEMP 37.2; O2SAT 99
[2017-12-14 23:57] VITALS: BP 160/92; PULSE 87; RESP 16; TEMP 36.2; O2SAT 94
[2017-12-15] MEDS: OXYCODONE IR 5 MG TABLET 10 MG PO ×3 (00:02→10:15)
[2017-12-15 06:02] VITALS: BP 128/63; PULSE 68; RESP 16; TEMP 36.7; O2SAT 98
[2017-12-15] MEDS: DEXTROSE 5%-0.45NS W/KCL 20MEQ 1,000 ML 100 MEQ IV (07:35)
--- NOTE | 2017-12-15 09:39 | PM.DS.1 ---
History of Present Illness Date Patient Seen: 12/15/17 Time Patient Seen: 09:39 Chief complaint: BACK PAIN, THINKS PANCREASE Narrative: 67-year-old female recently diagnosed with biliary cancer and was at the [facility] recently for a biliary stent procedure. She was placed on Levaquin at that time and was only home for a day or 2 and developed severe pain that started in the back radiating down into the abdomen just above the umbilicus area. This symptoms seemed to start after taking the Levaquin. She has had decreased appetite and just not feeling well also. She came to the emergency room for evaluation and emergency room physician has contacted the [facility] GI specialist who did the procedure and they feels that she needs to come back down to the [facility] but there are no beds available. Her lipase in the emergency room was 43,000. CT scan showed possible pancreatitis Discharge Providers Date of admission: 12/13/17 23:12 Consults: 12/13/17 23:43 Consult to Physician Routine Comment: Consulting Provider: Yaquelin Reyes Reason for consultation: admission Has provider been notified: Yes 12/14/17 00:01 Consult to Dietitian, Adult Routine Comment: Reason For Exam: assessment score Discharge provider: Dago Armstrong MD Summary Discharge Diagnosis: One. Acute pancreatitis 2. Biliary tract carcinoma Hospital Course: Patient recently had a biliary stent placed for obstruction related to a biliary tract carcinoma. This was done at the [facility]. Of a couple days after the procedure she develops intense pain starting in her lower back radiating to her abdomen. Lipase level was over 40,000. She was brought in place and IV fluids we contacted [facility] GI department and they wanted her transferred back to the [facility] however no beds were available. We treated her here with NPO status IV fluids. She gradually improved and started her on clear liquids yesterday started feeling better a lipase level dropped to 11,000 over night. At this point the patient would rather go home and do any follow-up as an outpatient. She is tolerating oral liquids well she will answer diet on her home phone at home. Will place her on oxycodone for pain. Status at Discharge Functional status at discharge: independent ambulation Overall status at discharge: patient is back to baseline Time Spent with Patient Greater than 30 minutes Exam Vital Signs (past 8 hours): - 12/15/17 06:02 Temperature 98.1 F Pulse Rate 68 Respiratory Rate 16 Blood Pressure 128/63 H Pulse Oximetry 98 Oxygen Delivery Method Room Air Oxygen Flow Rate 0 Narrative Exam Narrative: She is awake alert she is in no acute distress Abdomen is soft no significant tenderness to palpation bowel sounds are present she is visibly jaundiced Objective Labs Result Diagrams: 12/13/17 17:10 12/14/17 06:07 Discharge Plan Discharge Plan Patient Disposition: Home, Self-Care Provider Discharge Instructions Diet: Low-fat Discharge Data Attending Provider: Yaquelin Reyes Admit Date/Time: 12/13/17 23:12
--- NOTE | 2017-12-15 09:42 | P.DS_ITS ---
History of Present Illness Date Patient Seen: 12/15/17 Time Patient Seen: 09:39 Chief complaint: BACK PAIN, THINKS PANCREASE Narrative: 67-year-old female recently diagnosed with biliary cancer and was at the [facility] recently for a biliary stent procedure. She was placed on Levaquin at that time and was only home for a day or 2 and developed severe pain that started in the back radiating down into the abdomen just above the umbilicus area. This symptoms seemed to start after taking the Levaquin. She has had decreased appetite and just not feeling well also. She came to the emergency room for evaluation and emergency room physician has contacted the [facility] GI specialist who did the procedure and they feels that she needs to come back down to the [facility] but there are no beds available. Her lipase in the emergency room was 43,000. CT scan showed possible pancreatitis Discharge Providers Date of admission: 12/13/17 23:12 Consults: 12/13/17 23:43 Consult to Physician Routine Comment: Consulting Provider: Yaquelin Reyes Reason for consultation: admission Has provider been notified: Yes 12/14/17 00:01 Consult to Dietitian, Adult Routine Comment: Reason For Exam: assessment score Discharge provider: Dago Armstrong MD Summary Discharge Diagnosis: One. Acute pancreatitis 2. Biliary tract carcinoma Hospital Course: Patient recently had a biliary stent placed for obstruction related to a biliary tract carcinoma. This was done at the [facility]. Of a couple days after the procedure she develops intense pain starting in her lower back radiating to her abdomen. Lipase level was over 40, 000. She was brought in place and IV fluids we contacted [facility] GI department and they wanted her transferred back to the [facility] however no beds were available. We treated her here with NPO status IV fluids. She gradually improved and started her on clear liquids yesterday started feeling better a lipase level dropped to 11,000 over night. At this point the patient would rather go home and do any follow-up as an outpatient. She is tolerating oral liquids well she will answer diet on her home phone at home. Will place her on oxycodone for pain. Status at Discharge Functional status at discharge: independent ambulation Overall status at discharge: patient is back to baseline Time Spent with Patient Greater than 30 minutes Exam Vital Signs (past 8 hours): - 12/15/17 06:02 Temperature 98.1 F Pulse Rate 68 Respiratory Rate 16 Blood Pressure 128/63 H Pulse Oximetry 98 Oxygen Delivery Method Room Air Oxygen Flow Rate 0 Narrative Exam Narrative: She is awake alert she is in no acute distress Abdomen is soft no significant tenderness to palpation bowel sounds are present she is visibly jaundiced Objective Labs Result Diagrams: 12/13/17 17:10 12/14/17 06:07 Discharge Plan Discharge Plan Patient Disposition: Home, Self-Care Provider Discharge Instructions Diet: Low-fat Discharge Data Attending Provider: Yaquelin Reyes Admit Date/Time: 12/13/17 23:12
--- NOTE | 2017-12-15 10:47 | PC.NURSE ---
Discharge: Pt feels ready for d/c home. Spouse present at time of teaching. Rx given. Reviewed instructions for pancreatitis and low fat diet. oxycodone given prior to d/c home until rx can be filled. Questions answered. Pt d/c home via auto w/spouse.
--- NOTE | 2017-12-15 15:31 | CM.DANOTE ---
DCP: assessment: initiated: case received yesterday, discussed in [facility] rounds and advised by RN coodinator that a transfer to was in process with pt accepted, waiting for a bed to open. Check in today shows that pt was here in the morning, no bed yet open and she discussed with Dr. Armstrong and made decision to go home and followup as an outpt.
== END 2017-12-15 10:40 | disposition home or self-care (01) | DRG 439 ==
LOC: ED 22:35 → AC 23:13
PROVIDERS: Emergency Medicine; Admitting Provider Internal Medicine; Emergency Provider Emergency Medicine; Visit Provider Internal Medicine
DX: K85.80 Other acute pancreatitis without necrosis or infection (principal); C23 Malignant neoplasm of gallbladder; I10 Essential (primary) hypertension; Z96.49 Presence of other endocrine implants
CPT/HCPCS: 36415; 36591; 74177; 76700; 80053; 80076; 81003; 83605; 83615; 83690; 85025; 85610; 96361; 96365; 96375; 96376; 99285; J1170; Q9967

== ENCOUNTER 2017-12-23 08:10 | Emergency (ER) | payer MEDICARE, BC, SELFPAY ==
[2017-12-13 23:46] VITALS: BMI 20.5
[2017-12-23] VITALS (8 sets, daily range): BP systolic 111–147; BP diastolic 53–88; PULSE 57–78; RESP 14–20; TEMP 35.7–36.8; O2SAT 98–100
--- NOTE | 2017-12-23 09:04 | DI.RAD.S_ITS ---
PROCEDURE: XR CHEST 1V INDICATIONS: upper abd pain TECHNIQUE: One view of the chest was acquired. COMPARISON: None. FINDINGS: Surgical changes and devices: There are bilateral breast prostheses. Lungs and pleura: No pleural effusions or pneumothorax. Lungs are clear. Mediastinum: Mediastinal contours appear normal. Heart size is normal. Bones and chest wall: No suspicious bony lesions. Overlying soft tissues appear unremarkable. IMPRESSION: No acute cardiac pulmonary disease. Dictated by: Doron Luis M.D. on 12/23/2017 at 10:26 Approved by: Doron Luis M.D. on 12/23/2017 at 10:26
--- NOTE | 2017-12-23 09:05 | DI.CT.S_ITS ---
PROCEDURE: CT ABDOMEN PELVIS W CON INDICATIONS: 67 year old woman with epigastric pain. She has Known biliary CA. TECHNIQUE: After the administration of intravenous contrast, 5 mm thick sections acquired from the diaphragm to the symphysis. 5 mm coronal and sagittal reformats were acquired. For radiation dose reduction, the following was used: automated exposure control, adjustment of mA and/or kV according to patient size. COMPARISON: [facility], CT, CT ABDOMEN PELVIS W CON, 12/13/2017, 20:41. FINDINGS: Image quality: Excellent. ABDOMEN: Lung bases: Lung bases are clear. Heart size is normal. Left breast prosthesis is noted. There is a small hiatal hernia. Solid organs: There is a biliary stent. There is pneumobilia and intrahepatic biliary dilation. Ill-defined hypodensities are noted in the left hepatic lobe near the jeff hepatis and the gallbladder fossa. Gallbladder is distended and contains gallstones. Pancreas enhances normally. Spleen is normal in size and enhancement. No adrenal nodules. Kidneys demonstrate normal size and enhancement, without hydronephrosis. Peritoneum and bowel: There is a 1.6 cm air and fluid filled structure near the pancreatic head and uncinate process (series 2 image 38), probably a duodenal diverticulum. There are extensive colonic diverticula involving the descending and sigmoid colon. Mild thickening of sigmoid colon suggest mild diverticulitis. Bowel loops demonstrate normal caliber. No free fluid or air. Nodes and vessels: No retroperitoneal or mesenteric adenopathy by size criteria. Aorta and inferior vena cava are normal in size. Miscellaneous: No ventral hernias. PELVIS: Genitourinary: Bladder wall thickness is normal. Miscellaneous: No inguinal hernias or adenopathy. Bones: No suspicious bony lesions. No vertebral body compression fractures. IMPRESSION: 1. There is a biliary stent with pneumobilia and biliary dilation. 2. Hypodensities are noted in the left hepatic lobe near the gallbladder fossa and the jeff hepatis. Differential diagnoses include neoplastic process versus inflammatory etiology. 3. There is a 1.6 cm air and fluid filled structure near the pancreatic head and uncinate process, suspicious for a duodenal diverticulum. If there is recent endoscopic ultrasound-guided biopsy, this could represent a small abscess. Recommend clinical correlation followup. 4. Cholelithiasis. 5. Extensive diverticulosis. Mild thickening of sigmoid colon suggest mild diverticulitis. Dictated by: Doron Luis M.D. on 12/23/2017 at 10:27 Approved by: Doron Luis M.D. on 12/23/2017 at 10:45
[2017-12-23] MEDS: HYDROMORPHONE 0.5 MG INJ 1 MG IV ×3 (09:29→15:25)
[2017-12-23] MEDS: SODIUM CHLORIDE 0.9% 1,000 ML 1000 ML IV (09:30)
[2017-12-23 09:31] LABS: Add Manual Diff / Slide Review NO; Basophils Percent Auto 1.2 % (0-2); Eosinophils Percent Auto 0.7 % (2-4); Hematocrit 35.3 % (36-46); Hemoglobin 12.2 g/dL (12.0-16.0); Lymphocytes Percent Auto 20.4 % (25-40); Mean Corpuscular HGB Conc 34.5 % (30-36); Mean Corpuscular Volume 89.6 fL (80-100); Monocytes Percent Auto 10.4 % (3-14); Neutrophils Absolute Auto 5300 /uL (3000-5900); Neutrophils Percent Auto 67.3 % (50-75); Platelet Count 529 X10^3/uL (150-400); Red Blood Cell Count 3.93 X10^6/uL (4.0-5.2); Red Cell Distribution Width 14.5 % (11.6-14.8); White Blood Cell Count 7.9 X10^3/uL (4.5-11.0)
[2017-12-23 09:44] LABS: Lactate (Lactic Acid) 1.1 mmol/L (0.7-2.1)
[2017-12-23 09:45] LABS: Alanine Aminotransferase 64 IU/L (9-52); Albumin 3.5 g/dL (3.5-5.0); Albumin Globulin Ratio 1.3 (1.0-2.8); Alkaline Phosphatase 229 U/L (38-126); Aspartate Aminotransferase 51 IU/L (14-36); Bilirubin Total 2.3 mg/dL (0.2-1.3); Blood Urea Nitrogen 6 mg/dL (7-17); Calcium 8.9 mg/dL (8.4-10.2); Carbon Dioxide 28 mmol/L (22-32); Chloride 102 mmol/L (98-107); Estimated Glomerular Filt Rate > 60.0 mL/min (>60); Globulin 2.7 g/dL (1.7-4.1); Glucose 96 mg/dL (80-110); HEMOLYSIS < 15 (0-50); Lipase 97 U/L (23-300); Potassium 3.6 mmol/L (3.4-5.1); Sodium 139 mmol/L (137-145); Total Protein 6.2 g/dL (6.3-8.2)
--- NOTE | 2017-12-23 15:01 | PC.NURSE ---
S/W pts DR at [facility]. Explained the reason that [facility] wanted her sent back to the . understands this and hopefully they will understand as wanting her care to be at [facility] only
--- NOTE | 2017-12-23 15:09 | PC.NURSE ---
s/w pt and at this time. Plan to DC home and go to [facility] directly
--- NOTE | 2017-12-23 15:32 | ED_ITS ---
HPI - Abdominal Pain General Chief Complaint: Abdominal Pain Stated Complaint: pancreatitis pain, poss bowel obstruction History of Present Illness HPI narrative: HPI 67-year-old female with recently diagnosed biliary cancer (now s/p pancreatic and biliary duct stenting with interval pancreatitis) presents for evaluation of 12 hours of worsening diffuse but predominantly epigastric pain. Patient denies nausea, vomiting, has been having issues with constipation. Denies dysuria, denies fevers, chills. M/S/F/SocHx notable for: please see HPI; remainder reviewed with patient and in chart. ROS: Negative constitutional, eye, cardiovascular, pulmonary, GI, , MSK, skin , neurologic, psychiatric, endocrine unless noted in the HPI. Exam Gen: Pleasant, non-toxic appearing, resting comfortably. HEENT: NC, AT, PEERL, EOMI. Resp: Clear to auscultation bilaterally, normal work of breathing, no accessory muscle usage. Card: Regular rate and rhythm with no murmurs, rubs, or gallops, extremities warm and well perfused. GI: mild upper abdominal tenderness palpation, remainder of abdomen nontender to palpation, no rebound, no guarding. : No suprapubic tenderness to palpation. MSK: No visible deformities, strength and tone without visually appreciable deficit. Skin: Normal color with no visible lesions. Neuro: AO x 3, no facial asymmetry, vision and hearing WNL. Psych: Mood and affect appropriate. Labs / Imaging: WBC 7.9, Hb 12.2, Na 139, K 3.6, total bilirubin 2.3, AST 51, ALT 64, ALP 229, lipase 97. CT Abd/Pelvis: 1. There is a biliary stent with pneumobilia and biliary dilation. 2. Hypodensities are noted in the left hepatic lobe near the gallbladder fossa and the jeff hepatis. Differential diagnoses include neoplastic process versus inflammatory etiology. 3. There is a 1.6 cm air and fluid filled structure near the pancreatic head and uncinate process, suspicious for a duodenal diverticulum. If there is recent endoscopic ultrasound-guided biopsy, this could represent a small abscess. Recommend clinical correlation followup. 4. Cholelithiasis. 5. Extensive diverticulosis. Mild thickening of sigmoid colon suggest mild diverticulitis. CXR: no acute cardiopulmonary disease process. MDM Previous chart, nursing note, labs, imaging, and vitals reviewed. A: 67-year-old female with recently diagnosed biliary cancer (now s/p pancreatic and biliary duct stenting with interval pancreatitis) presents for evaluation of 12 hours of worsening diffuse but predominantly epigastric pain. Evaluation: patient with concerning features on CT abdomen pelvis, notable for pneumobilia and possible abscess. Hemodynamically stable, no leukocytosis, patient with resolved pancreatitis. Patient requested transfer to [place], discussed with hospitalist, transfer declined as patient be better served at where procedure had been performed. Phone consultation with gastroenterology and possible transfer to pending. Patient adamant that she does not want to be admitted at and only wants to be treated at [place]. Risks and benefits were reviewed, patient made an informed decision, was provided with a dose of Zosyn and discharged with a prescription for ciprofloxacin and flagyl. Return to care precautions provided. Patient's PCP updated. Impression: abdominal pain Related Data Home Medications Medication Instructions Recorded Confirmed lisinopril 10 1 tab PO DAILY 11/06/17 12/14/17 mg-hydrochlorothiazide 12.5 mg tablet simvastatin 40 mg tablet 40 mg PO QAM 11/06/17 12/14/17 Previous Rx's Medication Instructions Recorded oxycodone 10 mg PO Q3HR PRN #50 tab 12/15/17 Allergies Allergy/AdvReac Type Severity Reaction Status Date / Time No Known Drug Allergies Allergy Verified 12/13/17 17:06 [facility] Medical History Colon cancer (Acute) Biliary tract cancer (Chronic) Hypertension (Chronic) Surgical History History of colon resection (Acute) Social History household members: spouse Smoking Status: Never smoker Exam Initial Vital Signs Initial Vital Signs: Vital Signs Temperature 96.3 F L 12/23/17 08:20 Pulse Rate 61 12/23/17 08:20 Respiratory Rate 20 12/23/17 08:20 Blood Pressure 125/57 H 12/23/17 08:20 Pulse Oximetry 99 12/23/17 08:20 Course Orders Ordered: ED Orders 12/23/17 09:04 XR chest 1V Stat 12/23/17 09:05 CT abdomen pelvis w con Stat Urinalysis and Microscopic Stat 12/23/17 09:20 Complete Blood Count AUTO DIFF Stat Comprehensive Metabolic Panel Stat Lactate (Lactic Acid) Stat Lipase Stat Piperacillin/Tazobactam/Dextrose (Zosyn) 4.5 gm in 100 mls @ 200 mls/hr IV NOW ONE Stop: 12/23/17 15:43 Discontinued Medications Hydromorphone HCl (Dilaudid) 1 mg IV NOW ONE Stop: 12/23/17 09:05 Last Admin: 12/23/17 09:29 Dose: 1 mg Hydromorphone HCl (Dilaudid) 1 mg IV NOW ONE Stop: 12/23/17 12:45 Last Admin: 12/23/17 12:47 Dose: 1 mg Hydromorphone HCl (Dilaudid) 1 mg IV NOW ONE Stop: 12/23/17 15:20 Last Admin: 12/23/17 15:25 Dose: 1 mg Sodium Chloride (Normal Saline 0.9%) 1,000 mls @ 1,000 mls/hr IV BOLUS ONE Stop: 12/23/17 10:03 Last Infusion: 12/23/17 10:18 Dose: 0 mls/hr Admin: 12/23/17 09:30 Dose: 1,000 mls/hr Vital Signs - 8 hr 12/23/17 08:20 12/23/17 08:34 12/23/17 10:11 Temperature 96.3 F L 98.3 F Pulse Rate 61 62 57 L Respiratory Rate 20 14 16 Blood Pressure 125/57 H Blood Pressure [Left Arm] 125/59 H 147/53 H Pulse Oximetry 99 99 100 12/23/17 11:00 12/23/17 12:12 12/23/17 13:00 Temperature Pulse Rate 61 57 L Respiratory Rate Blood Pressure Blood Pressure [Left Arm] 130/56 H 129/68 H 111/58 L Pulse Oximetry 98 98 12/23/17 14:00 12/23/17 15:10 Temperature Pulse Rate 64 78 Respiratory Rate 16 Blood Pressure Blood Pressure [Left Arm] 132/65 H 144/88 H Pulse Oximetry 98 99 MDM - Abdominal Pain Lab Data Result diagrams: 12/23/17 09:20 12/23/17 09:20 Lab Results 12/23/17 12/23/17 12/23/17 Range/Units 09:20 09:20 09:20 WBC 7.9 (4.5-11.0) X10^3/uL RBC 3.93 L (4.0-5.2) X10^6/uL Hgb 12.2 (12.0-16.0) g/dL Hct 35.3 L (36-46) % MCV 89.6 (80-100) fL MCH 31.0 (26-34) PG MCHC 34.5 (30-36) % RDW 14.5 (11.6-14.8) % Plt Count 529 H (150-400) X10^3/uL Neut % (Auto) 67.3 (50-75) % Lymph % (Auto) 20.4 L (25-40) % [place] % (Auto) 10.4 (3-14) % Eos % (Auto) 0.7 L (2-4) % Baso % (Auto) 1.2 (0-2) % Neut # (Auto) 5300 (2492-3796) /uL Sodium 139 (137-145) mmol/L Potassium 3.6 (3.4-5.1) mmol/L Chloride 102 (98-107) mmol/L Carbon Dioxide 28 (22-32) mmol/L BUN 6 L (7-17) mg/dL Creatinine 0.50 L (0.52-1.04) mg/dL Estimated GFR > 60.0 (>60) mL/min BUN/Creatinine Ratio 12.0 (6-22) Glucose 96 (80-110) mg/dL Lactate 1.1 (0.7-2.1) mmol/L Calcium 8.9 (8.4-10.2) mg/dL Total Bilirubin 2.3 H (0.2-1.3) mg/dL AST 51 H (14-36) IU/L ALT 64 H (9-52) IU/L Alkaline Phosphatase 229 H (38-126) U/L Total Protein 6.2 L (6.3-8.2) g/dL Albumin 3.5 (3.5-5.0) g/dL Globulin 2.7 (1.7-4.1) g/dL Albumin/Globulin Ratio 1.3 (1.0-2.8) Lipase 97 D (23-300) U/L Discharge Plan Departure Prescriptions: No Action simvastatin 40 mg tablet 40 mg PO QAM RF: 0 lisinopril-hydrochlorothiazide 10-12.5 mg tablet 1 tab PO DAILY RF: 0 oxycodone 5 mg Tablet 10 mg PO Q3HR PRN (Reason: Pain, Severe (7-10)) Qty: 50 RF: 0
--- NOTE | 2017-12-23 15:33 | PC.NURSE ---
Pt understands ABX ordered. They are unsure that they want this is it will interfere with treatments sought elsewhere. MD will speak to them prior to dc
== END 2017-12-23 15:45 | disposition left against medical advice (07) ==
PROVIDERS: Emergency Provider Emergency Medicine
DX: R10.9 Unspecified abdominal pain (principal)
CPT/HCPCS: 36591; 71045; 74177; 80053; 83605; 83690; 85025; 96361; 96374; 96376; 99284; 99285; J1170; Q9967

== ENCOUNTER → 2018-01-18 16:11 | Outpatient (CLI) | payer MEDICARE, BC, SELFPAY ==
[2017-12-13 23:46] VITALS: BMI 20.5
[2018-01-18 17:06] LABS: INR 2.3 (0.9-1.3); Prothrombin Time 24.9 SECONDS (10.1-12.7)
[2018-01-18 17:11] LABS: Alanine Aminotransferase 119 IU/L (9-52); Albumin 3.5 g/dL (3.5-5.0); Alkaline Phosphatase 632 U/L (38-126); Aspartate Aminotransferase 117 IU/L (14-36); Bilirubin Direct 8.8 mg/dL (0.0-0.4); Bilirubin Total 9.9 mg/dL (0.2-1.3); Bilirubin Unconjugated 1.1 mg/dL (0.0-1.1); Globulin 3.6 g/dL (1.7-4.1); HEMOLYSIS < 15 (0-50); Total Protein 7.1 g/dL (6.3-8.2)
== END ==
PROVIDERS: Visit Provider Internal Medicine
DX: P59.9 Neonatal jaundice, unspecified (principal)
CPT/HCPCS: 36415; 80076; 82248; 85610

== ENCOUNTER → 2018-01-26 14:36 | Outpatient (CLI) | payer MEDICARE, BC, SELFPAY ==
[2017-12-13 23:46] VITALS: BMI 20.5
[2018-01-26 16:54] LABS: INR 1.2 (0.9-1.3); Prothrombin Time 13.2 SECONDS (10.1-12.7)
== END ==
PROVIDERS: Visit Provider Internal Medicine
DX: I81 Portal vein thrombosis (principal)
CPT/HCPCS: 36415; 85610

== ENCOUNTER → 2018-02-05 10:28 | Outpatient (CLI) | payer MEDICARE, BC, SELFPAY ==
[2017-12-13 23:46] VITALS: BMI 20.5
[2018-02-05 11:20] LABS: Add Manual Diff / Slide Review NO; Basophils Percent Auto 0.5 % (0-2); Eosinophils Percent Auto 0.8 % (2-4); Hematocrit 35.2 % (36-46); Hemoglobin 11.7 g/dL (12.0-16.0); Lymphocytes Percent Auto 25.6 % (25-40); Mean Corpuscular HGB Conc 33.2 % (30-36); Mean Corpuscular Hemoglobin 29.9 PG (26-34); Monocytes Percent Auto 0.6 % (3-14); Neutrophils Absolute Auto 2700 /uL (3000-5900); Neutrophils Percent Auto 72.5 % (50-75); Platelet Count 374 X10^3/uL (150-400); Red Blood Cell Count 3.91 X10^6/uL (4.0-5.2); Red Cell Distribution Width 14.3 % (11.6-14.8); White Blood Cell Count 3.8 X10^3/uL (4.5-11.0)
[2018-02-05 11:26] LABS: INR 1.3 (0.9-1.3); Prothrombin Time 13.9 SECONDS (10.1-12.7)
[2018-02-05 11:46] LABS: Alanine Aminotransferase 69 IU/L (9-52); Albumin 3.5 g/dL (3.5-5.0); Albumin Globulin Ratio 1.2 (1.0-2.8); Alkaline Phosphatase 403 U/L (38-126); Aspartate Aminotransferase 59 IU/L (14-36); Bilirubin Total 2.9 mg/dL (0.2-1.3); Blood Urea Nitrogen 7 mg/dL (7-17); Calcium 8.8 mg/dL (8.4-10.2); Carbon Dioxide 25 mmol/L (22-32); Chloride 103 mmol/L (98-107); Estimated Glomerular Filt Rate > 60.0 mL/min (>60); Glucose 96 mg/dL (80-110); HEMOLYSIS 40 (0-50); Potassium 4.4 mmol/L (3.4-5.1); Sodium 138 mmol/L (137-145); Total Protein 6.5 g/dL (6.3-8.2)
== END ==
PROVIDERS: Visit Provider Internal Medicine
DX: I81 Portal vein thrombosis (principal)
CPT/HCPCS: 36415; 80053; 85025; 85610

== ENCOUNTER → 2018-02-09 12:02 | Outpatient (CLI) | payer MEDICARE, BC, SELFPAY ==
[2017-12-13 23:46] VITALS: BMI 20.5
[2018-02-09 12:36] LABS: INR 1.8 (0.9-1.3); Prothrombin Time 19.3 SECONDS (10.1-12.7)
== END ==
PROVIDERS: Visit Provider Internal Medicine
DX: I81 Portal vein thrombosis (principal)
CPT/HCPCS: 36415; 85610

== ENCOUNTER → 2018-02-15 11:41 | Outpatient (CLI) | payer MEDICARE, BC, SELFPAY ==
[2017-12-13 23:46] VITALS: BMI 20.5
[2018-02-15 13:02] LABS: INR 1.3 (0.9-1.3); Prothrombin Time 14.3 SECONDS (10.1-12.7)
== END ==
PROVIDERS: Visit Provider Internal Medicine
DX: I81 Portal vein thrombosis (principal)
CPT/HCPCS: 36415; 85610

== ENCOUNTER → 2018-02-19 10:07 | Outpatient (CLI) | payer MEDICARE, BC, SELFPAY ==
[2017-12-13 23:46] VITALS: BMI 20.5
[2018-02-19 10:41] LABS: Add Manual Diff / Slide Review NO; Basophils Percent Auto 0.6 % (0-2); Eosinophils Percent Auto 0.8 % (2-4); Hematocrit 31.1 % (36-46); Hemoglobin 10.5 g/dL (12.0-16.0); Lymphocytes Percent Auto 36.7 % (25-40); Mean Corpuscular HGB Conc 33.8 % (30-36); Mean Corpuscular Hemoglobin 30.4 PG (26-34); Mean Corpuscular Volume 89.8 fL (80-100); Monocytes Percent Auto 8.5 % (3-14); Neutrophils Absolute Auto 1600 /uL (3000-5900); Neutrophils Percent Auto 53.4 % (50-75); Platelet Count 456 X10^3/uL (150-400); Red Blood Cell Count 3.46 X10^6/uL (4.0-5.2); Red Cell Distribution Width 14.7 % (11.6-14.8)
[2018-02-19 11:18] LABS: Alanine Aminotransferase 48 IU/L (9-52); Albumin 3.7 g/dL (3.5-5.0); Albumin Globulin Ratio 1.3 (1.0-2.8); Alkaline Phosphatase 223 U/L (38-126); Aspartate Aminotransferase 32 IU/L (14-36); Bilirubin Total 1.3 mg/dL (0.2-1.3); Blood Urea Nitrogen 6 mg/dL (7-17); Calcium 8.8 mg/dL (8.4-10.2); Carbon Dioxide 29 mmol/L (22-32); Chloride 102 mmol/L (98-107); Estimated Glomerular Filt Rate > 60.0 mL/min (>60); Globulin 2.8 g/dL (1.7-4.1); Glucose 110 mg/dL (80-110); HEMOLYSIS < 15 (0-50); Potassium 4.1 mmol/L (3.4-5.1); Sodium 142 mmol/L (137-145); Total Protein 6.5 g/dL (6.3-8.2)
[2018-02-21 15:36] LABS: Cancer (Carbohydrate) Ag 19-9 3828 U/mL (< 34)
== END ==
PROVIDERS: PCP Internal Medicine; Visit Provider Internal Medicine
DX: C22.1 Intrahepatic bile duct carcinoma (principal)
CPT/HCPCS: 36415; 80053; 85025; 86301

== ENCOUNTER → 2018-02-23 11:17 | Outpatient (CLI) | payer MEDICARE, BC, SELFPAY ==
[2017-12-13 23:46] VITALS: BMI 20.5
[2018-02-23 12:19] LABS: Prothrombin Time 21.8 SECONDS (10.1-12.7)
== END ==
PROVIDERS: PCP Internal Medicine; Visit Provider Internal Medicine
DX: I81 Portal vein thrombosis (principal)
CPT/HCPCS: 36415; 85610

== ENCOUNTER → 2018-03-01 10:21 | Outpatient (CLI) | payer MEDICARE, BC, SELFPAY ==
[2017-12-13 23:46] VITALS: BMI 20.5
[2018-03-01 10:56] LABS: Add Manual Diff / Slide Review NO; Basophils Percent Auto 0.8 % (0-2); Eosinophils Percent Auto 0.2 % (2-4); Hemoglobin 11.4 g/dL (12.0-16.0); Lymphocytes Percent Auto 27.4 % (25-40); Mean Corpuscular HGB Conc 33.5 % (30-36); Mean Corpuscular Hemoglobin 30.2 PG (26-34); Mean Corpuscular Volume 90.1 fL (80-100); Monocytes Percent Auto 8.7 % (3-14); Neutrophils Absolute Auto 4000 /uL (3000-5900); Neutrophils Percent Auto 62.9 % (50-75); Platelet Count 485 X10^3/uL (150-400); Red Blood Cell Count 3.77 X10^6/uL (4.0-5.2); Red Cell Distribution Width 16.1 % (11.6-14.8); White Blood Cell Count 6.4 X10^3/uL (4.5-11.0)
[2018-03-01 10:58] LABS: INR 1.4 (0.9-1.3); Prothrombin Time 15.8 SECONDS (10.1-12.7)
[2018-03-01 11:04] LABS: Alanine Aminotransferase 62 IU/L (9-52); Albumin 3.9 g/dL (3.5-5.0); Albumin Globulin Ratio 1.3 (1.0-2.8); Alkaline Phosphatase 203 U/L (38-126); Aspartate Aminotransferase 61 IU/L (14-36); Bilirubin Total 0.9 mg/dL (0.2-1.3); Blood Urea Nitrogen 7 mg/dL (7-17); Carbon Dioxide 26 mmol/L (22-32); Chloride 104 mmol/L (98-107); Estimated Glomerular Filt Rate > 60.0 mL/min (>60); Globulin 3.1 g/dL (1.7-4.1); Glucose 122 mg/dL (80-110); HEMOLYSIS 27 (0-50); Potassium 3.8 mmol/L (3.4-5.1); Sodium 141 mmol/L (137-145)
== END ==
PROVIDERS: PCP Internal Medicine; Visit Provider Internal Medicine
DX: C22.1 Intrahepatic bile duct carcinoma (principal); I81 Portal vein thrombosis
CPT/HCPCS: 36415; 80053; 85025; 85610

== ENCOUNTER → 2018-03-13 13:10 | Outpatient (CLI) | payer MEDICARE, BC, SELFPAY ==
[2017-12-13 23:46] VITALS: BMI 20.5
[2018-03-13 14:58] LABS: INR 1.3 (0.9-1.3); Prothrombin Time 14.5 SECONDS (10.1-12.7)
[2018-03-13 15:10] LABS: Alanine Aminotransferase 45 IU/L (9-52); Albumin 3.9 g/dL (3.5-5.0); Albumin Globulin Ratio 1.5 (1.0-2.8); Alkaline Phosphatase 149 U/L (38-126); Aspartate Aminotransferase 28 IU/L (14-36); Bilirubin Total 0.6 mg/dL (0.2-1.3); Blood Urea Nitrogen 8 mg/dL (7-17); Calcium 9.3 mg/dL (8.4-10.2); Carbon Dioxide 29 mmol/L (22-32); Chloride 100 mmol/L (98-107); Estimated Glomerular Filt Rate > 60.0 mL/min (>60); Globulin 2.6 g/dL (1.7-4.1); Glucose 92 mg/dL (80-110); HEMOLYSIS < 15 (0-50); Potassium 4.1 mmol/L (3.4-5.1); Sodium 141 mmol/L (137-145); Total Protein 6.5 g/dL (6.3-8.2)
[2018-03-13 15:18] LABS: Add Manual Diff / Slide Review NO; Basophils Percent Auto 0.4 % (0-2); Eosinophils Percent Auto 0.7 % (2-4); Hematocrit 33.7 % (36-46); Hemoglobin 11.1 g/dL (12.0-16.0); Lymphocytes Percent Auto 28.2 % (25-40); Mean Corpuscular HGB Conc 32.9 % (30-36); Mean Corpuscular Hemoglobin 30.1 PG (26-34); Mean Corpuscular Volume 91.5 fL (80-100); Monocytes Percent Auto 15.4 % (3-14); Neutrophils Absolute Auto 3200 /uL (3000-5900); Neutrophils Percent Auto 55.3 % (50-75); Red Blood Cell Count 3.68 X10^6/uL (4.0-5.2); Red Cell Distribution Width 17.9 % (11.6-14.8); White Blood Cell Count 5.8 X10^3/uL (4.5-11.0)
[2018-03-13 15:19] LABS: Platelet Count 284 X10^3/uL (150-400)
[2018-03-15 15:49] LABS: Cancer (Carbohydrate) Ag 19-9 1728 U/mL (< 34)
== END ==
PROVIDERS: PCP Internal Medicine; Visit Provider Internal Medicine
DX: C22.1 Intrahepatic bile duct carcinoma (principal); I81 Portal vein thrombosis
CPT/HCPCS: 36415; 80053; 85025; 85610; 86301

== ENCOUNTER → 2018-03-20 13:35 | Outpatient (CLI) | payer MEDICARE, BC, SELFPAY ==
[2017-12-13 23:46] VITALS: BMI 20.5
[2018-03-20 14:01] LABS: Add Manual Diff / Slide Review NO; Basophils Percent Auto 1.4 % (0-2); Eosinophils Percent Auto 0.9 % (2-4); Hematocrit 34.3 % (36-46); Hemoglobin 11.5 g/dL (12.0-16.0); Lymphocytes Percent Auto 25.5 % (25-40); Mean Corpuscular HGB Conc 33.4 % (30-36); Mean Corpuscular Hemoglobin 30.4 PG (26-34); Mean Corpuscular Volume 91.1 fL (80-100); Monocytes Percent Auto 1.3 % (3-14); Neutrophils Absolute Auto 2400 /uL (3000-5900); Neutrophils Percent Auto 70.9 % (50-75); Platelet Count 474 X10^3/uL (150-400); Red Blood Cell Count 3.77 X10^6/uL (4.0-5.2); Red Cell Distribution Width 18.1 % (11.6-14.8); White Blood Cell Count 3.4 X10^3/uL (4.5-11.0)
[2018-03-20 14:12] LABS: INR 1.7 (0.9-1.3)
[2018-03-20 14:17] LABS: Alanine Aminotransferase 64 IU/L (9-52); Albumin 4.3 g/dL (3.5-5.0); Albumin Globulin Ratio 1.6 (1.0-2.8); Alkaline Phosphatase 114 U/L (38-126); Aspartate Aminotransferase 46 IU/L (14-36); Bilirubin Total 0.6 mg/dL (0.2-1.3); Blood Urea Nitrogen 8 mg/dL (7-17); Calcium 8.8 mg/dL (8.4-10.2); Carbon Dioxide 23 mmol/L (22-32); Chloride 103 mmol/L (98-107); Estimated Glomerular Filt Rate > 60.0 mL/min (>60); Globulin 2.7 g/dL (1.7-4.1); Glucose 140 mg/dL (80-110); HEMOLYSIS < 15 (0-50); Potassium 3.6 mmol/L (3.4-5.1); Sodium 141 mmol/L (137-145)
== END ==
PROVIDERS: Family Provider Internal Medicine; PCP Internal Medicine; Visit Provider Internal Medicine
DX: I81 Portal vein thrombosis (principal); C22.1 Intrahepatic bile duct carcinoma
CPT/HCPCS: 36415; 80053; 85025; 85610